=== PATIENT | male | born 1975 | race Two or more races ===

== ENCOUNTER 2017-07-18 15:18 | Emergency (ER) | payer MEDICAID ==
[2017-07-18 16:11] VITALS: BP 134/87
[2017-07-18] MEDS ORDERED: Lidocaine 2% PF * 5 ML VIAL INJ ONE (16:48)
--- NOTE | 2017-07-18 16:48 | UC ---
Skin Complaint HPI - HPI Summary HPI Summary: Pt presents with sore to buttocks first noticed 3 days ago. He tells me that 3 days ago he noticed his upper right buttocks becoming painful when sitting or laying. Since that time has become increasingly more painful and swollen. Denies fever, chills, change in bowel habits, abdominal pain, n/v/d/c. - History of Current Complaint Chief Complaint: UCSkin Time Seen by Provider: 07/18/17 16:45 Stated Complaint: SORE ON BUTTOCKS Hx Obtained From: Patient Onset/Duration: Gradual Onset Timing: Constant Onset Severity: Severe Current Severity: Severe Pain Intensity: 8 Pain Scale Used: 0-10 Numeric - Allergy/Home Medications Allergies/Adverse Reactions: Allergies Allergy/AdvReac Type Severity Reaction Status Date / Time aspirin Allergy Heartburn Verified 07/18/17 16:12 Review of Systems Constitutional: Negative Skin: Other - Abscess right buttocks Respiratory: Negative Cardiovascular: Negative Gastrointestinal: Negative Musculoskeletal: Negative Neurological: Negative Psychological: Negative All Other Systems Reviewed And Are Negative: Yes PMH/Surg Hx/FS Hx/Imm Hx Previously Healthy: Yes - Surgical History Surgical History: None - Family History Known Family History: Positive: None - Social History Lives: With Family Alcohol Use: None Substance Use Type: None Smoking Status (MU): Former Smoker Physical Exam Triage Information Reviewed: Yes Appearance: Well-Appearing, Well-Nourished, Pain Distress - Mild Vital Signs: Initial Vital Signs Temp 99.6 F 07/18/17 16:07 Pulse 87 07/18/17 16:07 Resp 18 07/18/17 16:07 BP 134/87 07/18/17 16:07 Pulse Ox 99 07/18/17 16:07 Vital Signs Reviewed: Yes Neck: Positive: Supple, Nontender, No Lymphadenopathy Respiratory: Positive: Lungs clear, Normal breath sounds, No respiratory distress, No accessory muscle use Cardiovascular: Positive: RRR, No Murmur, Pulses Normal Neurological: Positive: Alert Psychological: Positive: Age Appropriate Behavior Skin: Positive: Other - 7.0cm diameter area of erythema and induration with central fluctuance on right upper buttocks with scant purulent drainage. Very TTP. No bleeding or streaking. - Additional Comments CHUY: No rectal tenderness. Good sphincter tone. Course/Dx - Course Course Of Treatment: abscess right upper buttocks. A time out was performed, witnessed, and signed. A 5mm incision was made on the cental most part of the abscess with a #11 blade and copious purulent matter with blood was able to be expressed. Pt tolerated procedure well. istop: Reference #: [id number] - Diagnoses Provider Diagnoses: Skin Abscess right upper buttocks Procedures - Incision and Drainage Site: Right upper buttocks Anesthesia: Local Instrument(s): Scalpel Discharge - Discharge Plan Condition: Stable Disposition: HOME Prescriptions: HYDROcodone/ACETAMIN 5-325 MG* [[place] 5-325 TAB*] 1 tab PO Q6H PRN #12 tab MDD 4 PRN Reason: Pain Sulfamethox/Trimethoprim DS* [Bactrim DS 800/160 TAB*] 1 tab PO BID #14 tab Patient Education Materials: Abscess (ED) Referrals: No Primary Care Phys,NOPCP [Primary Care Provider] - Additional Instructions: If you develop a fever, shortness of breath, chest pain, new or worsening symptoms - please call your PCP or go to the ED.
[2017-07-18] MEDS ORDERED: HYDROcodone/ACETAMIN 5-325 MG* 1 TAB PO ONE (17:35)
== END 2017-07-18 18:15 | disposition home or self-care (01) ==
LOC: UCEAST 15:18
DX: L02.31 Cutaneous abscess of buttock (principal); Z88.6 Allergy status to analgesic agent; Z87.891 Personal history of nicotine dependence
CPT/HCPCS: 10060; 99212; G0463